=== PATIENT | female | born 1995 | race Caucasian/White ===

== ENCOUNTER 2017-05-24 17:37 | Emergency (ER) | payer OTHER ==
--- NOTE | 2017-05-24 20:20 | ER Document Report ---
HPI - HPI Patient complains to provider of: itching Onset: Other - Several weeks Onset/Duration: Waxing and waning Quality of pain: No pain Pain Level: Denies Context: Patient presents complaining of generalized itching for the past several weeks. Patient is currently 32 weeks . Patient denies any new foods, medications or detergents. Patient denies any skin rash. Patient states she was gurgling her symptoms and is concerned about cholestasis. Associated Symptoms: Other - Skin pruritus Exacerbated by: Denies Relieved by: Denies Similar symptoms previously: No Recently seen / treated by doctor: No - ROS ROS below otherwise negative: Yes Systems Reviewed and Negative: Yes All other systems reviewed and negative - CONSTITUTIONAL Constitutional: DENIES: Fever, Chills - NEURO Neurology: DENIES: Headache - RESPIRATORY Respiratory: DENIES: Trouble Breathing, Coughing - GASTROINTESTINAL Gastrointestinal: DENIES: Abdominal Pain, Nausea, Patient vomiting - MUSCULOSKELETAL Musculoskeletal: DENIES: Back Pain Past Medical History - General Information source: Patient Last Menstrual Period: 32 weeks - Social History Smoking Status: Never Smoker Frequency of alcohol use: None Drug Abuse: None Occupation: None Lives with: Family Family History: Reviewed & Not Pertinent - Medical History Medical History: Negative Surgical Hx: Negative Vertical Provider Document - CONSTITUTIONAL Agree With Documented VS: Yes Exam Limitations: No Limitations General Appearance: WD/WN, No Apparent Distress - INFECTION CONTROL TRAVEL OUTSIDE OF THE [place] IN LAST 30 DAYS: No - HEENT HEENT: Atraumatic, Normocephalic - NECK Neck: Normal Inspection, Supple. negative: Lymphadenopathy-Right - RESPIRATORY Respiratory: Breath Sounds Normal, No Respiratory Distress O2 Sat by Pulse Oximetry: 98 - CARDIOVASCULAR Cardiovascular: Regular Rate, Regular Rhythm, No Murmur - GI/ABDOMEN Gastrointestinal: Abdomen Soft, Abdomen Non-Tender Notes: gravid abd - BACK Back: Normal Inspection - MUSCULOSKELETAL/EXTREMETIES Musculoskeletal/Extremeties: BASHIR APONTE - NEURO Level of Consciousness: Awake, Alert, Appropriate Motor/Sensory: No Motor Deficit - DERM Integumentary: Warm, Dry, No Rash Course - Re-evaluation Re-evalutation: 05/24/17 21:22 Patient with concerns about Cholestasis in due to her skin itching. Patient without any other problems or complaints. Patient with normal liver function test. No elevated bilirubin. Patient advised to follow-up with her material scheduler for further evaluation. Patient was advised of minimally elevated blood pressure here today. Patient states that it is more than likely due to increased stress and concern about cholestasis. - Vital Signs Vital signs: Temp Pulse Resp BP Pulse Ox 98.6 F 101 H 18 147/90 H 98 05/24/17 17:53 05/24/17 17:53 05/24/17 17:53 05/24/17 17:53 05/24/17 17:53 - Laboratory Result Diagrams: 05/24/17 20:35 Laboratory results interpreted by me: 05/24/17 21:23 Labs- Entire Visit 05/24/17 20:35 Sodium 138.8 Potassium 3.9 Chloride 105 Carbon Dioxide 23 Anion Gap 11 BUN 9 Creatinine 0.57 Est GFR ( Amer) > 60 Est GFR (Non-Af Amer) > 60 Glucose 73 L Calcium 9.4 Total Bilirubin 0.3 Direct Bilirubin 0.2 Indirect Bilirubin Not Reportable Neonat Total Bilirubin Not Reportable AST 26 ALT 49 Alkaline Phosphatase 83 Total Protein 6.3 Albumin 3.7 Discharge - Discharge Clinical Impression: Elevated blood pressure reading, Itchy skin Condition: Stable Disposition: HOME, SELF-CARE Instructions: Use of Diphenhydramine Additional Instructions: Return immediately for any new or worsening symptoms Followup with your primary care provider, call tomorrow to make a followup appointment Your blood pressure was minimally elevated today, have your material scheduler recheck this. You may take Benadryl [id number] to help with itching. Moisturize your skin and stay well-hydrated Forms: Elevated Blood Pressure Referrals: YAZAN ZAYAS, CUSHION MAKER HANDEllenC [Primary Care Provider] - Follow up as needed [facility] [Provider Group] - 05/27/17
[2017-05-24 21:10] LABS: ALANINE AMINOTRANSFERASE 49 U/L (9-52); ALBUMIN 3.7 g/dL (3.5-5.0); ALKALINE PHOSPHATASE 83 U/L (38-126); ANION GAP 11 (5-19); ASPARTATE AMINO TRANSFERASE 26 U/L (14-36); BILIRUBIN,DIRECT 0.2 mg/dL (0.0-0.4); BILIRUBIN,TOTAL 0.3 mg/dL (0.2-1.3); BLOOD UREA NITROGEN 9 mg/dL (7-20); CALCIUM 9.4 mg/dL (8.4-10.2); CARBON DIOXIDE 23 mmol/L (22-30); CHLORIDE 105 mmol/L (98-107); CREATININE RESULT 0.57 mg/dL (0.52-1.25); GLUCOSE 73 mg/dL (75-110); POTASSIUM 3.9 mmol/L (3.6-5.0); SODIUM 138.8 mmol/L (137-145); TOTAL PROTEIN 6.3 g/dL (6.3-8.2)
[2017-05-24 21:48] VITALS: BP 133/77
== END 2017-05-24 21:48 | disposition home or self-care (01) ==
LOC: ER 17:37
DX: R03.0 Elevated blood-pressure reading, without diagnosis of hypertension (principal); L29.9 Pruritus, unspecified; Z3A.32 32 weeks gestation of pregnancy
CPT/HCPCS: 36415; 80053; 99283

== ENCOUNTER 2017-07-02 11:44 | Outpatient (CLI) | payer OTHER ==
[2017-07-02 12:37] LABS: URINE BARBITURATES SCREEN NEGATIVE; URINE METHADONE SCREEN NEGATIVE; URINE OPIATES LOW NEGATIVE; URINE PHENCYCLIDINE SCREEN NEGATIVE
[2017-07-02 12:44] LABS: URINE CREATININE 14.2 mg/dL (16-327); URINE PROTEIN 13.8 mg/dL (<12)
[2017-07-02 13:03] LABS: HEMATOCRIT 37.5 % (36.0-47.0); HEMOGLOBIN 12.5 g/dL (12.0-15.5); MEAN CORPUSCULAR HEMOGLOBIN 30.1 pg (27.0-33.4); MEAN CORPUSCULAR HGB CONC 33.4 g/dL (32.0-36.0); MEAN CORPUSCULAR VOLUME 90 fl (80-97); RED BLOOD COUNT 4.16 10^6/uL (3.72-5.28); RED CELL DISTRIBUTION WIDTH 12.6 % (11.5-14.0); WHITE BLOOD COUNT 11.1 10^3/uL (4.0-10.5)
[2017-07-02 13:38] LABS: ALANINE AMINOTRANSFERASE 40 U/L (9-52); ALBUMIN 3.4 g/dL (3.5-5.0); ALKALINE PHOSPHATASE 117 U/L (38-126); ANION GAP 8 (5-19); ASPARTATE AMINO TRANSFERASE 22 U/L (14-36); BILIRUBIN,DIRECT 0.2 mg/dL (0.0-0.4); BILIRUBIN,TOTAL 0.2 mg/dL (0.2-1.3); BLOOD UREA NITROGEN 7 mg/dL (7-20); CALCIUM 9.4 mg/dL (8.4-10.2); CARBON DIOXIDE 23 mmol/L (22-30); CHLORIDE 106 mmol/L (98-107); CREATININE RESULT 0.56 mg/dL (0.52-1.25); GLUCOSE 89 mg/dL (75-110); LDH 362 U/L (313-618); POTASSIUM 4.1 mmol/L (3.6-5.0); SODIUM 136.7 mmol/L (137-145); URIC ACID 3.5 mg/dL (2.5-6.2)
--- NOTE | 2017-07-02 14:12 | Non Stress Test Report ---
Non Stress Test Datetime Report Generated by CPN: 07/02/2017 14:12 INDICATION Indication for Study: Ordered by Provider MONITORING Monitor Explained: Monitor Explained; Test Explained Time on Monitor: 07/02/2017 12:09 Time off Monitor: 07/02/2017 12:52 NST Duration: 43 NST INTERVENTIONS NST Interventions: PO Hydration; Reposition Patient Physician Notified NST: Dr. Lemons BABY A: [id number] BABY A Movement : Present Contraction Frequency : Irr FHR Baseline : 145 Accelerations : 15X15 Decelerations : None Variability : Moderate 6-25bpm NST Review: Meets Criteria for Reactive NST NST Review and Verified By : Justine De La Torre RN NST Results: Reactive NST REPORT Report Trigger: Send Report
[2017-07-03 17:15] LABS: URINE PROTEIN 10.4 mg/dL (<12)
== END 2017-07-02 13:48 | disposition home or self-care (01) ==
LOC: LC 11:44
PROVIDERS: ATTEND Student in an Organized Health Care Education/Training Program
PROC: 4A1HXCZ Monitoring of Products of Conception, Cardiac Rate, External Approach (ICD-10-PCS; principal; 2017-07-02)
DX: O12.13 Gestational proteinuria, third trimester (principal); Z3A.37 37 weeks gestation of pregnancy
CPT/HCPCS: 36415; 59025; 80053; 80307; 82570; 83615; 84156; 84550; 85027

== ENCOUNTER 2017-07-03 15:56 | Outpatient (CLI) | payer OTHER ==
--- NOTE | 2017-07-03 18:09 | Non Stress Test Report ---
Non Stress Test Datetime Report Generated by CPN: 07/03/2017 18:09 DEMOGRAPHIC EGA NST: 38.0 INDICATION Indication for Study: Ordered by Provider MONITORING Monitor Explained: Monitor Explained; Test Explained; Patient Verbalized Understanding Time on Monitor: 07/03/2017 16:12 Time off Monitor: 07/03/2017 17:07 NST Duration: 55 NST INTERVENTIONS NST Interventions: PO Hydration Physician Notified NST: Dr. Cortes BABY A: [id number] BABY A Movement : Present Contraction Frequency : none FHR Baseline : 140 Accelerations : 15X15 Decelerations : None Variability : Moderate 6-25bpm NST Review: Meets Criteria for Reactive NST NST Review and Verified By : LINDEN PACHECO RN NST Results: Reactive NST REPORT Report Trigger: Send Report
== END 2017-07-03 17:41 | disposition home or self-care (01) ==
LOC: LC 15:56
PROVIDERS: ATTEND Obstetrics & Gynecology Gynecology
PROC: 4A1HXCZ Monitoring of Products of Conception, Cardiac Rate, External Approach (ICD-10-PCS; principal; 2017-07-03)
DX: O12.13 Gestational proteinuria, third trimester (principal); Z3A.38 38 weeks gestation of pregnancy
CPT/HCPCS: 59025

== ENCOUNTER 2017-07-09 14:20 | Inpatient (IN) | payer OTHER ==
[2017-07-09 14:59] LABS: AMORPHOUS SEDIMENT,URINE TRACE /HPF; APPEARANCE,URINE SLIGHTLY-CLOUDY; BILIRUBIN,URINE NEGATIVE (NEGATIVE); COLOR,URINE STRAW; GLUCOSE, URINE NEGATIVE (NEGATIVE); KETONES,URINE NEGATIVE (NEGATIVE); LEUKOCYTE ESTERASE,URINE SMALL (NEGATIVE); NITRITE,URINE NEGATIVE (NEGATIVE); PROTEIN,URINE NEGATIVE (NEGATIVE); URINE SPECIFIC GRAVITY 1.001; UROBILINOGEN,URINE NEGATIVE mg/dL (<2.0)
[2017-07-09 15:13] LABS: URINE CREATININE 13.4 mg/dL (16-327); URINE PROTEIN 13.8 mg/dL (<12)
[2017-07-09 15:19] LABS: URINE AMPHETAMINES SCREEN NEGATIVE; URINE BARBITURATES SCREEN NEGATIVE; URINE BENZODIAZEPINES SCREEN NEGATIVE; URINE COCAINE SCREEN NEGATIVE; URINE MARIJUANA (THC) SCREEN NEGATIVE; URINE METHADONE SCREEN NEGATIVE; URINE PHENCYCLIDINE SCREEN NEGATIVE
[2017-07-09] MEDS ORDERED: RINGERS SOLUTION,LACTATED 300 ML IV ONE (16:09)
[2017-07-09 16:30] LABS: ABSOLUTE EOSINOPHILS # (AUTO) 0.1 10^3/uL (0.0-0.6); ABSOLUTE LYMPHOCYTES (AUTO) 1.6 10^3/uL (0.5-4.7); ABSOLUTE MONOCYTES (AUTO) 0.9 10^3/uL (0.1-1.4); ABSOLUTE NEUT (AUTO) 10.7 10^3/uL (1.7-8.2); BASOPHILS % (AUTO) 0.3 % (0-2); EOSINOPHILS % (AUTO) 0.8 % (0-6); HEMATOCRIT 39.7 % (36.0-47.0); HEMOGLOBIN 13.2 g/dL (12.0-15.5); LYMPHOCYTES % (AUTO) 12.3 % (13-45); MEAN CORPUSCULAR HGB CONC 33.1 g/dL (32.0-36.0); MEAN CORPUSCULAR VOLUME 91 fl (80-97); MONOCYTES % (AUTO) 6.7 % (3-13); PLATELET COUNT 186 10^3/uL (150-450); RED BLOOD COUNT 4.39 10^6/uL (3.72-5.28); RED CELL DISTRIBUTION WIDTH 13.4 % (11.5-14.0); SEGMENTED NEUTROPHILS % (AUTO) 79.9 % (42-78); TOTAL CELLS COUNTED % (AUTO) 100 %; WHITE BLOOD COUNT 13.3 10^3/uL (4.0-10.5)
[2017-07-09] MEDS ORDERED: DINOPROSTONE 10 MG VAGINAL INSERT.SR ONE (16:42)
[2017-07-09] MEDS: RINGERS SOLUTION,LACTATED 1,000 ML IV PRN ×2 (16:51→21:03)
[2017-07-09] MEDS: DINOPROSTONE 10 MG VAGINAL INSERT.SR PV PRN (16:51)
[2017-07-09 17:02] LABS: ALANINE AMINOTRANSFERASE 31 U/L (9-52); ALBUMIN 3.7 g/dL (3.5-5.0); ALKALINE PHOSPHATASE 145 U/L (38-126); ANION GAP 12 (5-19); ASPARTATE AMINO TRANSFERASE 22 U/L (14-36); BILIRUBIN,DIRECT 0.2 mg/dL (0.0-0.4); BILIRUBIN,TOTAL 0.3 mg/dL (0.2-1.3); BLOOD UREA NITROGEN 8 mg/dL (7-20); CALCIUM 10.2 mg/dL (8.4-10.2); CARBON DIOXIDE 21 mmol/L (22-30); CHLORIDE 105 mmol/L (98-107); GLUCOSE 87 mg/dL (75-110); LDH 384 U/L (313-618); SODIUM 137.9 mmol/L (137-145); TOTAL PROTEIN 6.3 g/dL (6.3-8.2); URIC ACID 3.5 mg/dL (2.5-6.2)
[2017-07-09] MEDS ORDERED: ZOLPIDEM TARTRATE 5 MG TABLET PO ONE (20:58)
[2017-07-09] MEDS ORDERED: ZOLPIDEM TARTRATE 5 MG TABLET ONE (21:01)
[2017-07-10] MEDS ORDERED: EPHEDRINE SULFATE INJ 50 MG/1 ML AMPULE ONE (05:45)
[2017-07-10] MEDS ORDERED: BUPIVACAINE HCL 0.25 % INJ/PF (2.5 MG/1 ML) 30 ML VIAL ONE (05:45)
[2017-07-10] MEDS ORDERED: FENTANYL/BUPIVACAINE/NS/PF 200 MCG/100 ML RTUINJ EPI ONE (05:45)
[2017-07-10 06:22] LABS: ABSOLUTE BASOPHILS # (AUTO) 0.1 10^3/uL (0.0-0.2); ABSOLUTE LYMPHOCYTES (AUTO) 1.8 10^3/uL (0.5-4.7); ABSOLUTE MONOCYTES (AUTO) 1.3 10^3/uL (0.1-1.4); ABSOLUTE NEUT (AUTO) 14.9 10^3/uL (1.7-8.2); BASOPHILS % (AUTO) 0.4 % (0-2); EOSINOPHILS % (AUTO) 0.2 % (0-6); HEMATOCRIT 39.6 % (36.0-47.0); HEMOGLOBIN 13.2 g/dL (12.0-15.5); LYMPHOCYTES % (AUTO) 9.7 % (13-45); MEAN CORPUSCULAR HGB CONC 33.4 g/dL (32.0-36.0); MEAN CORPUSCULAR VOLUME 90 fl (80-97); MONOCYTES % (AUTO) 7.4 % (3-13); PLATELET COUNT 139 10^3/uL (150-450); RED BLOOD COUNT 4.42 10^6/uL (3.72-5.28); RED CELL DISTRIBUTION WIDTH 13.1 % (11.5-14.0); SEGMENTED NEUTROPHILS % (AUTO) 82.3 % (42-78); TOTAL CELLS COUNTED % (AUTO) 100 %; WHITE BLOOD COUNT 18.1 10^3/uL (4.0-10.5)
[2017-07-10] MEDS ORDERED: MISOPROSTOL 0.2 MG TABLET ONE (09:16)
[2017-07-10] MEDS ORDERED: LIDOCAINE 1% INJ-PF (10 MG/ML) 30 ML SDV ONE (09:17)
[2017-07-10] MEDS ORDERED: OXYTOCIN/NORMAL SALINE 20 UNIT/1,000 ML RTUINJ ONE (09:17)
--- NOTE | 2017-07-10 09:55 | L&D Progress Notes ---
PROGRESS NOTES Datetime Report Generated by CPN: 07/10/2017 09:55 PROGRESS NOTE Plan: Continue Present Management Informed Consent Obtained: Vaginal Delivery; Risks, Benefits and Alternatives Discussed Vital Signs : Reviewed Comment: 22 yo admitted for GHTN EGA 38.6 bps wnl 24 hour urine less than 300 mg in 24 hour protein abdomen nontender FHTs 150s with early decelerations SROM 0530 clear start pitocin per augmentation protocol pt comfortable after epidural placement ctxs 2-4 min Rh positive Rubella non immune anticipate poc reviewed with pt and family VAGINAL EXAM Dilatation: 0 Effacement: 0 Station: -3 Contractions: rare MEMBRANES Membranes: Ruptured Membranes: Intact FETUS A FHR - Baseline: 150 Monitoring: External US Variability: Moderate 6-25bpm Accelerations: 15X15 Decelerations: Early FHR Category: Category I : 39.0 Presentation: Vertex SIGNATURE SIGNATURE: [id number];14,[id number] SIGNATURE: [id number] SIGNATURE: 14,[id number] Assignment: Kylie Lemons MD Signature: with User ID: [email or web address] : with User ID: [email or web address]
[2017-07-10] MEDS ORDERED: ACETAMINOPHEN 650 MG SUPP.RECT PR PRN ×2 (12:49→19:19)
[2017-07-10] MEDS ORDERED: PSEUDOEPHEDRINE HCL 30 MG TABLET PO PRN ×2 (12:49→19:19)
[2017-07-10] MEDS ORDERED: MAGNESIUM HYDROXIDE SUSP 30 ML UDCUP PO PRN ×2 (12:49→19:19)
[2017-07-10] MEDS ORDERED: OXYTOCIN/NORMAL SALINE 20 UNIT/1,000 ML RTUINJ IV PRN ×2 (12:49→19:19)
[2017-07-10] MEDS ORDERED: PROMETHAZINE HCL 25 MG TABLET PO PRN ×2 (12:49→19:19)
[2017-07-10] MEDS ORDERED: ZOLPIDEM TARTRATE 5 MG TABLET PO PRN ×2 (12:49→19:19)
[2017-07-10] MEDS ORDERED: DIBUCAINE 1% OINTMENT 28 GM TP PRN ×2 (12:49→19:19)
[2017-07-10] MEDS ORDERED: PROMETHAZINE HCL INJ 25 MG/1 ML VIAL IV PRN ×2 (12:49→19:19)
[2017-07-10] MEDS ORDERED: DIPH/PERTUSS(ACELL)/TETANUS VAC/PF 0.5 ML SYR (>=10YO) IM PRN ×2 (12:49→19:19)
[2017-07-10] MEDS ORDERED: PROMETHAZINE HCL 25 MG SUPP.RECT PR PRN ×2 (12:49→19:19)
[2017-07-10] MEDS ORDERED: NA PHOS,M-B/NA PHOS,DI-BA (ADULT) 133 ML ENEMA PR PRN ×2 (12:49→19:19)
[2017-07-10] MEDS ORDERED: MEASLES,MUMPS&RUBELLA VACC/PF 0.5 ML VIAL SUBCUT PRN ×2 (12:49→19:19)
[2017-07-10] MEDS ORDERED: BENZOCAINE/MENTHOL AEROSOL SPRAY 56 ML TOP PRN ×2 (12:49→19:19)
[2017-07-10] MEDS ORDERED: DIPHENHYDRAMINE HCL 25 MG CAPSULE PO PRN ×2 (12:49→19:19)
[2017-07-10] MEDS ORDERED: GLYCERIN/WITCH HAZEL LEAF 1 EACH MED..PAD TP PRN ×2 (12:49→19:19)
--- NOTE | 2017-07-10 13:05 | Warning Signs in Babies ---
VOD Warning Signs Datetime Report Generated by [facility]: 07/10/2017 13:05 VOD#608 -Warning Signs in Babies: Viewed with Parent(s)/Family (07/10/2017 13:04:Sherry De La Torre RN)
[2017-07-10] MEDS: OXYTOCIN/NORMAL SALINE 20 UNIT/1,000 ML RTUINJ IV PRN ×2 (13:56→14:48)
[2017-07-10] MEDS ORDERED: IBUPROFEN 800 MG TABLET PO SCH (14:00)
[2017-07-10] MEDS: DINOPROSTONE 10 MG VAGINAL INSERT.SR PV PRN (14:48)
[2017-07-10] MEDS: RINGERS SOLUTION,LACTATED 1,000 ML IV PRN (14:48)
[2017-07-10] MEDS ORDERED: IBUPROFEN 800 MG TABLET ONE (15:02)
--- NOTE | 2017-07-10 15:24 | Delivery Summary ---
Del Sum A-C Datetime Report Generated by CPN: 07/10/2017 15:24 DELIVERY PERSONNEL DELIVERY PERSONNEL: [id number] Delivery Doctor:: Fernando Gannon CNM Labor and Delivery Nurse:: Sherry De La Torre RNbridges supervisor Nurse:: Keisha Lennon RN Slide Machine Tender/INSOLE LIP TURNER: Nancy GrierhensGUTIERREZA II MATERNAL INFORMATION Delivery Anesthesia: Epidural Medications After Delivery: Pitocin Bolus-Please Comment Meds After Delivery Comment: Pitocin 20 units in 1000ml NS bolused per order Estimated Blood Loss (ml): 250 Maternal Complications: None Provider Comments: delivery of viable male bulb suctioned on perineum compound right hand YARITZA to abdomen tactile stimulation elicits spont cry cord clamped and cut by mother no lacerations EBL 250 cc ff@U mod lochia placenta intact ?? velamentous insertion placenta to pathology hemostasis achieved LABOR SUMMARY EDC: 07/17/2017 00:00 No. Babies in Womb: 1 Attempted: No Labor Anesthesia: Epidural LABOR INFORMATION Reason for Induction: Gestational Hypertension Onset of Labor: 07/10/2017 08:02 Complete Dilatation: 07/10/2017 12:27 Cervical Ripening Agents: Cervidil Oxytocin: Induction Group B Beta Strep: negative Antibiotics # of Doses: 0 Antibiotics Time of Last Dose: n/a Name of Antibiotic Given: n/a Steroids Given: None Reason Steroids Not Administered: Not Applicable Other Reason Not Administered: none MEMBRANES Membranes Rupture Method: Spontaneous Rupture of Membranes: 07/10/2017 05:30 Length of Rupture (hr): 7.08 Amniotic Fluid Color: Clear Amniotic Fluid Amount: Small Amniotic Fluid Odor: Normal STAGES OF LABOR Stage 1 hr: 4 Stage 1 min: 25 Stage 2 hr: 0 Stage 2 min: 8 Stage 3 hr: 0 Stage 3 min: 2 Total Time in Labor hr: 4 Total Time in Labor min: 35 VAGINAL DELIVERY Episiotomy: None Laceration #1: None Laceration Extension #1: N/A Other Laceration: none Laceration Repair: Not Applicable Sponge Count Correct: N/A Sharps Count Correct: N/A CSECTION DELIVERY Primary Indication: N/A Secondary Indication: N/A CSection Incidence: N/A Labor: N/A Elective: N/A CSection Incision: N/A BABY A INFORMATION Delivery Date/Time: 07/10/2017 12:35 Method of Delivery: Vaginal Born in Route : No : N/A Forceps: N/A Vacuum Extraction: N/A Shoulder Dystocia : No PRESENTATION/POSITION BABY A Presentation: Cephalic Cephalic Presentation: Vertex Vertex Position: Right Occipital Anterior Breech Presentation: N/A PLACENTA INFORMATION BABY A Placenta Delivery Time : 07/10/2017 12:37 Placenta Method of Delivery: Spontaneous Placenta Status: Delivered SCORES BABY A Heart Rate 1 min: >100 bpm Resp Effort 1 min: Good Cry Reflex Irritability 1 min: Cough or Sneeze or Pulls Away Muscle Tone 1 min: Active Motion Color 1 min: Body Whitfield, Extremities Blue Resuscitation Effort 1 min: Tactile Stimulation SCORE 1 MIN: 9 Heart Rate 5 min: >100 bpm Resp Effort 5 min: Good Cry Reflex Irritability 5 min: Cough or Sneeze or Pulls Away Muscle Tone 5 min: Active Motion Color 5 min: Body Whitfield, Extremities Blue Resuscitation Effort 5 min: Tactile Stimulation SCORE 5 MIN: 9 INFORMATION BABY A Gestational Age at Delivery: 39.0 Gestational Status: Full Term- 39- 40.6 Weeks Infant Outcome : Liveborn Infant Condition : Stable Sex: Male IDENTIFICATION BABY A Verification Date/Time: 07/10/2017 13:25 ID Band Number: [id number] Mother's Name Verified: Yes Infant RN Verifying Infant: Shayy Camp RNC Additional Verifying Personnel: [employer] RN WEIGHT/LENGTH BABY A Infant Birthweight (gm): 2815 Infant Weight (lb): 6 Infant Weight (oz): 3 Length (in): 18.75 Length (cm): 47.63 CORD INFORMATION BABY A No. Cord Vessels: 3 Nuchal Cord : N/A True Knot: 0 Cord Blood Taken: Yes-For Storage (Mom's Blood type +) Suction: Mouth; Nose ASSESSMENT BABY A Complications: None Physical Findings at Delivery: Within Normal Limits; Caput Succedaneum Respirations: Appears Normal Skin to Skin: Yes Skin to Skin Time (min): 45 Income Tax Auditor/ALS Called : No Care By: Erendira Lennon RN Transferred To: Remains with Mother BABY B INFORMATION : N/A SIGNATURES Assignment: Kylie Lemons MD Signature: with User ID: Lilia : with User ID: [email or web address]
--- NOTE | 2017-07-10 15:43 | Admission Physical ---
Datetime Report Generated by CPN: 07/10/2017 15:43 CURRENT ADMISSION Hx Assessment: The History has been Reviewed and is Current Chief Complaint: Sent from OB Office for Evaluation and Treatment - Please Specify Indication for Induction: Gestational HTN Indication for Induction: Term, Intrauterine Admit Plan: Admit to Unit; Initiate Labor Induction Protocol ALLERGIES Medication Allergies: Yes Medication Allergies: Penicillins (07/02/2017); azithromycin (07/09/2017); amoxicillin (07/02/2017) Medication Allergies: Penicillins (07/02/2017); amoxicillin (07/02/2017) Medication Allergies: Penicillins (05/24/2017); amoxicillin (05/24/2017) Latex: No Latex Allergies Food Allergies: no Environmental Allergies: no OBSTETRICAL HISTORY EDC: 07/17/2017 00:00 : 1 Para: 0 Term: 0 : 0 SAB: 0 IAB: 0 Ectopic: 0 Livin Cesareans: 0 VBACs: 0 Multiple Births: 0 Gestational Diabetes: No Rh Sensitization: No Incompetent Cervix: No ANA: No Infertility: No ART Treatment: No Uterine Anomaly: No IUGR: No Hx Previous C/S: No Macrosomia: No Hx Loss/Stillborn: No PIH: Yes Hx : No Placenta Previa/Abruption: No Depression/PP Depression: No PTL/PROM: No Post Hemorrhage: No Current Procedures: Ultrasound; NST Obstetrical History Comments: G1: Current, GHTN SEE RECORDS Alcohol: No Marijuana : No Cocaine: No Other Illicit Drugs: No Cigarettes: Never Smoker. [id number] MEDICAL HISTORY Diabetes: No Blood Transfusion: No Pulmonary Disease (Asthma, TB): No Breast Disease: No Hypertension: No Pharmacy Laboratory Technician Surgery: No Heart Disease: No Hosp/Surgery: No Autoimmune Disorder: No Anesthetic Complications: No Kidney Disease: No Abnormal Pap Smear: No Neuro/Epilepsy: No Psychiatric Disorders: No Other Medical Diseases: No Hepatitis/Liver Disease: No Significant Family History: No Varicosities/Phlebitis: No Trauma/Violence : No Thyroid Dysfunction: No INFECTIOUS HISTORY Gonorrhea: No Genital Herpes: No Chlamydia: No Tuberculosis: No Syphilis: No Hepatitis: No HIV/AIDS Exposure: No Rash or Viral Illness: No HPV: No PHYSICAL EXAM General: Normal HEENT: Deferred Neurologic: Normal Thyroid: Normal Heart: Normal Lungs: Normal Breast: Normal Back: Normal Abdomen: Normal Genitourinary Exam: Normal Extremities: Normal DTRs: Normal Pelvic Type: Adequate Physical Exam Comments: outer os 3cm inner os as stated Vital Signs: Reviewed; Within Normal Limits VAGINAL EXAM Dilatation: 0 Effacement: 0 Station: -3 Contraction Comments: rare MEMBRANES Membranes: Ruptured Membranes: Intact FETUS A EGA: 38.6 Monitoring: External US FHR- Baseline: 145 Variability: Moderate 6-25bpm Accelerations: 15X15 Decelerations: None FHR Category: Category I Presentation: Vertex Admit Comment: 22yo G1 @ 38w6d into L_D for PIH evaluation just turned in 24hr urine which was resulted today and less than 300mg. Denies OLSON/visual disturbances/RUQ/edema or other concerns. Reports +FM, denies bleeding/LOF. Pt. with mild range bp at office on 07/02 and then again today, normal BPs here but discussed with Dr. Cooper and pt. will be admitted and induced for GHTN. Pt with no significant medical hx and A positive, Rubella non-immune, GBS neg. Cervidil placed at this time. PLANS FOR LABOR AND DELIVERY Labor and Delivery: None Pain Management: Epidural Feeding Preference: Breast Benefit of Breast Feed Discussed: Yes Circumcision: Yes INFORMED CONSENT Informed Consent Obtained: Vaginal Delivery; Risks, Benefits and Alternatives Discussed Assignment: Millicent Cooper MD Signature: with User ID: Valerie : with User ID: [email or web address]
[2017-07-10] MEDS ORDERED: FERROUS SULFATE 325 MG TABLET PO SCH (18:00)
[2017-07-10] MEDS ORDERED: DOCUSATE SODIUM 100 MG CAPSULE PO SCH (18:00)
[2017-07-10] MEDS ORDERED: ACETAMINOPHEN WITH CODEINE #3 TABLET PO PRN ×2 (19:19)
[2017-07-10] MEDS ORDERED: FAMOTIDINE 20 MG TABLET PO SCH (22:00)
[2017-07-10] MEDS: IBUPROFEN 800 MG TABLET PO SCH (22:01)
[2017-07-10] MEDS: FAMOTIDINE 20 MG TABLET PO SCH (22:01)
[2017-07-11] MEDS: IBUPROFEN 800 MG TABLET PO SCH ×3 (05:05→21:50)
[2017-07-11 08:01] LABS: HEMATOCRIT 35.3 % (36.0-47.0); HEMOGLOBIN 11.9 g/dL (12.0-15.5); MEAN CORPUSCULAR HEMOGLOBIN 30.4 pg (27.0-33.4); MEAN CORPUSCULAR HGB CONC 33.6 g/dL (32.0-36.0); MEAN CORPUSCULAR VOLUME 90 fl (80-97); PLATELET COUNT 150 10^3/uL (150-450); RED CELL DISTRIBUTION WIDTH 13.2 % (11.5-14.0); WHITE BLOOD COUNT 15.3 10^3/uL (4.0-10.5)
[2017-07-11] MEDS ORDERED: PRENATAL VITAMIN W DHA CAPSULE PO SCH (10:00)
[2017-07-11] MEDS ORDERED: SENNOSIDES/DOCUSATE 8.6-50 MG 1 EACH TABLET PO SCH (10:00)
[2017-07-11] MEDS: SENNOSIDES/DOCUSATE 8.6-50 MG 1 EACH TABLET PO SCH (11:28)
[2017-07-11] MEDS: FERROUS SULFATE 325 MG TABLET PO SCH ×2 (11:28→17:59)
[2017-07-11] MEDS: DOCUSATE SODIUM 100 MG CAPSULE PO SCH ×2 (11:28→17:59)
[2017-07-11] MEDS: PRENATAL VITAMIN W DHA CAPSULE PO SCH (11:29)
[2017-07-11] MEDS: FAMOTIDINE 20 MG TABLET PO SCH ×2 (11:29→21:50)
--- NOTE | 2017-07-11 12:57 | PDOC PROGRESS REPORT ---
Subjective-OB Subjective: Post Delivery Day: 22 year old. Denies any needs at this time. Pt doing well, no concerns. Reports light bleeding, regular diet and voiding well. Physical Exam (OB) Vital Signs: Temp Pulse Resp BP Pulse Ox 98.4 F 86 16 122/82 98 07/11/17 08:04 07/11/17 08:04 07/11/17 08:04 07/11/17 08:04 07/11/17 08:04 Intake & Output 07/10/17 07/11/17 07/12/17 06:59 06:59 06:59 Weight 88.9 kg - Lochia Lochia Amount: Scant < 10 ml Lochia Color: Rubra/Red - Abdomen Description: Soft Hernia Present: No Fundal Description: Firm, Midline Fundal Height: u/u - u/2 Objective-Diagnostic Laboratory: 07/11/17 07:24 07/09/17 15:36 07/11/17 07:24 WBC 15.3 H RBC 3.90 Hgb 11.9 L Hct 35.3 L MCV 90 MCH 30.4 MCHC 33.6 RDW 13.2 Plt Count 150 Assessment and Plan(PN) - Assessment and Plan (1) Gestational hypertension Qualifiers: Trimester: third trimester Qualified Code(s): O13.3 - Gestational [ -induced] hypertension without significant proteinuria, third trimester Is this a current diagnosis for this admission?: Yes (2) Vaginal delivery Is this a current diagnosis for this admission?: Yes - Time Spent with Patient Time with patient: Less than 15 minutes Medications reviewed and adjusted accordingly: Yes - Disposition Anticipated Discharge: Home Within: within 24 hours
[2017-07-11] MEDS ORDERED: ACETAMINOPHEN 325 MG TABLET PO PRN (16:27)
[2017-07-12] MEDS: IBUPROFEN 800 MG TABLET PO SCH ×2 (05:15→13:55)
[2017-07-12 09:20] VITALS: BP 137/84
[2017-07-12] MEDS: FAMOTIDINE 20 MG TABLET PO SCH (10:00)
[2017-07-12] MEDS: DOCUSATE SODIUM 100 MG CAPSULE PO SCH (10:00)
[2017-07-12] MEDS: SENNOSIDES/DOCUSATE 8.6-50 MG 1 EACH TABLET PO SCH (10:01)
[2017-07-12] MEDS: PRENATAL VITAMIN W DHA CAPSULE PO SCH (10:01)
[2017-07-12] MEDS: FERROUS SULFATE 325 MG TABLET PO SCH (10:01)
--- NOTE | 2017-07-12 12:57 | PDOC DISCHARGE SUMMARY ---
General - Admit/Disc Date/PCP Admission Date/Primary Care Provider: 07/09/17 16:07 CLARITA MENDOZA MD Discharge Date: 07/12/17 - Discharge Diagnosis (1) Gestational hypertension Is this a current diagnosis for this admission?: Yes (2) Vaginal delivery Is this a current diagnosis for this admission?: Yes - Additional Information Home Medications: No122/Iron/Folic Acid [ Multi Tablet] 1 each PO DAILY 07/02/17 History of Present Illness History of Present Illness: CATHI HOUSE is a 22 year old female Hospital Course Hospital Course: s/p vaginal delivery. induced for Gestational Hypertension. doing well. minimal lochia. taking in PO adequately Physical Exam - Physical Exam Vital Signs: Temp Pulse Resp BP Pulse Ox 98.6 F 83 18 137/84 H 95 07/12/17 08:37 07/12/17 08:37 07/12/17 08:37 07/12/17 08:37 07/12/17 08:37 General appearance: PRESENT: no acute distress, cooperative GI/Abdominal exam: PRESENT: soft - fundus below umbilicus Result Laboratory Results: 07/11/17 07:24 07/09/17 15:36 Plan Discharge Plan: discharge home and follow up with OB in 4 weeks. Time Spent: Less than 30 Minutes
== END 2017-07-12 14:11 | disposition home or self-care (01) | DRG 775 ==
LOC: LC 14:20 → LR 16:07 → 2S 07-10 15:42
PROVIDERS: ADMIT Student in an Organized Health Care Education/Training Program; ATTEND Student in an Organized Health Care Education/Training Program
PROC: 10E0XZZ Delivery of Products of Conception, External Approach (ICD-10-PCS; principal; 2017-07-10)
PROC: 3E0234Z Introduction of Serum, Toxoid and Vaccine into Muscle, Percutaneous Approach (ICD-10-PCS; 2017-07-12)
DX: O13.4 Gestational [pregnancy-induced] hypertension without significant proteinuria, complicating childbirth (principal); O32.6XX0 Maternal care for compound presentation, not applicable or unspecified; Z3A.38 38 weeks gestation of pregnancy; Z37.0 Single live birth; Z23 Encounter for immunization
CPT/HCPCS: 36415; 80053; 80307; 81001; 82570; 83615; 84156; 84550; 85025; 85027; 86592; 86850; 86900; 86901; 88307; 90707; 94760; J2590; J3490